=== PATIENT | female | born 1990 | race Caucasian/White ===

== ENCOUNTER 2016-10-26 12:22 | Inpatient (IN) | payer BC ==
[~2016-10-26] VITALS: Ht 172.7 cm; Wt 81.2 kg
[2016-10-26] MEDS ORDERED: CLASSIC PRENAT1 EACH PO (17:23)
[2016-10-29] MEDS ORDERED: TRIPNIP TOP (10:35)
[2016-10-29] MEDS ORDERED: FERROUS SULFAT325 M1 PO (10:36)
[2016-10-29] MEDS ORDERED: MOTRIN800 MG PO (10:36)
[2016-10-29] MEDS ORDERED: COLACE100 MG PO (10:37)
== END 2016-10-29 11:45 | disposition short-term general hospital (02) | DRG 775 ==
LOC: LDRIP 12:22
PROVIDERS: ADMIT Family Medicine
PROC: 10E0XZZ Delivery of Products of Conception, External Approach (ICD-10-PCS; principal; 2016-10-27)
PROC: 0KQM0ZZ Repair Perineum Muscle, Open Approach (ICD-10-PCS; principal; 2016-10-27)
PROC: 3E033VJ Introduction of Other Hormone into Peripheral Vein, Percutaneous Approach (ICD-10-PCS; principal; 2016-10-27)
PROC: 10907ZC Drainage of Amniotic Fluid, Therapeutic from Products of Conception, Via Natural or Artificial Opening (ICD-10-PCS; principal; 2016-10-27)
DX: O70.1 Second degree perineal laceration during delivery (principal); Z37.0 Single live birth; Z3A.41 41 weeks gestation of pregnancy; O63.1 Prolonged second stage (of labor)
CPT/HCPCS: A9150; J2300; J2310; J2370; J2405; J2590; J2795; J3010; J3490